=== PATIENT | male | born 2005 | race Two or more races ===

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

== ENCOUNTER 2024-06-09 08:46 | Emergency (ER) | payer OTHER, SELFPAY ==
--- NOTE | ~2024-06-09 | XR_ITS ---
EXAMINATION: XR CHEST CLINICAL INFORMATION: Left-sided chest pain this morning COMPARISON: None available. TECHNIQUE: 2 views of the chest were obtained. FINDINGS: No pneumothorax. Lungs are well-expanded and clear. No pleural effusion. Heart and pulmonary vessels are normal. XR/XR chest 2V IMPRESSION: No active disease. No pneumothorax. Electronically signed by: Imtiaz Henry MD 06/09/2024 10:59 AM EDT
--- NOTE | 2024-06-09 08:50 | ECG_ITS ---
Test Reason : CHEST PAIN Blood Pressure : / mmHG Vent. Rate : 062 BPM Atrial Rate : 000 BPM P-R Int : 000 ms QRS Dur : 086 ms QT Int : 372 ms P-R-T Axes : 000 079 042 degrees QTc Int : 377 ms Normal sinus rhythm Normal ECG When compared with ECG of 01-OCT-2022 09:03, No significant change was found Referred By: Generic ED Physician Electronically Signed By:GAMAL HECK
[2024-06-09 09:07] VITALS: BP 112/51; PULSE 59; RESP 16; TEMP 36.4; O2SAT 99; BMI 16.9
[2024-06-09 09:29] LABS: MANUAL DIFF FLAG NO
[2024-06-09 09:31] LABS: Basophils Percent Auto 0.5 % (0-2); Eosinophils Percent Auto 0.5 % (0-4); Hematocrit 39.5 % (42.0-52.0); Hemoglobin 13.6 g/dl (14.0-18.0); Imm Gran Abs Auto 0.02 X10*3/uL (0.00-0.03); Imm Gran Pct Auto 0.3 % (0.0-0.4); Lymphocytes Absolute Auto 1.2 X10*3/uL (1.2-4.9); Lymphocytes Percent Auto 18.6 % (20-40); Mean Corpuscular HGB Conc 34.4 g/dl (31.0-36.0); Mean Corpuscular Hemoglobin 31.1 pg (27.0-33.0); Mean Corpuscular Volume 90.2 fL (80.0-98.0); Mean Platelet Volume 10.3 fL (9.4-12.4); Monocytes Absolute Auto 0.5 X10*3/uL (0.1-1.2); Monocytes Percent Auto 7.5 % (2-11); Neutrophils Absolute Auto 4.6 x10*3/uL (2.0-8.3); Neutrophils Percent Auto 72.6 % (45-73); Platelet Count 221 X10*3/uL (160-400); Red Blood Count 4.38 X10*6/uL (4.60-5.80); Red Cell Distribution Width 13.2 % (11.0-16.0); White Blood Count 6.3 X10*3/uL (4.8-10.8)
[2024-06-09 09:47] LABS: Alanine Aminotransferase 18 U/L (0-40); Albumin Level 4.5 g/dL (3.5-5.0); Alkaline Phosphatase 96 U/L (39-117); Anion Gap 12 (12-20); Aspartate Amino Transferase 25 U/L (5-37); Bilirubin Total 0.8 mg/dL (0.0-1.0); Blood Urea Nitrogen 12 mg/dL (9-16); Calcium 9.5 mg/dL (8.4-10.2); Carbon Dioxide 26 mmol/L (22-29); Chloride 105 mmol/L (96-108); Creatinine Clr Calc Pharmacy 103.6; Estimated Glomerular Filt Rate > 60; Glucose Random 85 mg/dL (60-115); Magnesium 2.2 mg/dL (1.6-2.6); Potassium 4.4 mmol/L (3.3-5.1); Sodium 139 mmol/L (135-145)
[2024-06-09 10:00] VITALS: BP 97/59; PULSE 57; RESP 14; TEMP 36.5; O2SAT 100
[2024-06-09 10:05] LABS: Troponin-I High Sensitivity < 2.7 ng/L (<3.5-35.0)
[2024-06-09 12:00] VITALS: BP 97/57; PULSE 57; RESP 14; TEMP 36.5; O2SAT 100
--- NOTE | 2024-06-09 13:02 | ECG_ITS ---
Test Reason : ABNORMAL EKG Blood Pressure : / mmHG Vent. Rate : 050 BPM Atrial Rate : 050 BPM P-R Int : 126 ms QRS Dur : 096 ms QT Int : 386 ms P-R-T Axes : 024 078 046 degrees QTc Int : 351 ms Sinus bradycardia Otherwise normal ECG When compared with ECG of 09-JUN-2024 08:47, No significant change was found Referred By: Reza Phillips Electronically Signed By:GAMAL HECK
[2024-06-09 13:18] LABS: Influenza A PCR NEGATIVE (Negative); Influenza B PCR NEGATIVE (Negative); Resp Syncy Virus RNA Qual PCR NEGATIVE (Negative); SARS COV2 PCR INHOUSE NEGATIVE (Negative)
--- NOTE | 2024-06-09 13:29 | ED_ITS ---
HPI - Chest Pain General Chief Complaint: Chest Pain Stated Complaint: Chest pain Time Seen by Provider: 06/09/24 12:58 Source: patient Mode of arrival: ambulatory Limitations: language barrier ([employer] Press Supervisor used) History of Present Illness ED Provider: Jacqueline YANG narrative: 18-year-old male with no significant past medical history presenting for chest pain. Patient states that his pain started this morning around 08:00 o'clock while he was at work. He describes it as a left lower dull pain. He denies shortness of breath and diaphoresis. He has been experiencing this pain for approximately 3 years. 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 He never followed up for this. His pain will occur once every few weeks to months and is not associated with activity. Related Data Previous Rx's ?Medication ?Instructions ?Recorded ibuprofen 600 mg tablet 600 mg PO Q6H PRN pain #30 tabs 04/05/22 doxycycline monohydrate 100 mg 100 mg PO BID #20 caps 04/10/22 capsule ibuprofen 600 mg tablet 600 mg PO Q8H PRN pain #30 tabs 04/10/22 ondansetron 4 mg disintegrating 4 mg PO Q8H PRN nausea and 10/01/22 tablet vomiting #10 tabs Allergies Allergy/AdvReac Type Severity Reaction Status Date / Time Penicillins Allergy Facial Verified 06/09/24 09:09 Swelling Review of Systems 2 Review of Systems: Patient endorses chest pain Patient denies head pain, neck pain, shortness of breath, abdominal pain, nausea, vomiting, diaphoresis, fevers, chills, trauma PMFSH Social History Social History Advance Directives: No Advance Directives Information Provided: No Do you have a plan to hurt others: No Plan Current occupational status: employed Current occupation: left-handed Physical Exam 2 Vital Signs: Vital Signs: Last Vital Signs Temp 97.7 F 06/09/24 12:00 Pulse 57 06/09/24 12:00 Resp 14 06/09/24 12:00 BP 97/57 L 06/09/24 12:00 Pulse Ox 100 06/09/24 12:00 O2 Del Method Room Air 06/09/24 12:00 BMI result Body Mass Index 16.9 Well-appearing male Lungs clear to auscultation bilaterally; normal S1-S2 regular rate and rhythm; no chest wall tenderness to palpation Abdomen is soft nontender nondistended Bedside echo showing aortic root < 3cm and LV wall thickness of less than 12mm Medications Administered Discontinued Medications Generic Name Dose Route Start Last Admin Trade Name Kurt PRN Reason Stop Dose Admin Acetaminophen 650 mg 06/09/24 13:28 06/09/24 13:55 Acetaminophen 325 Mg Tablet PO 06/09/24 13:29 650 mg ONCE ONE Administration Ketorolac Tromethamine 15 mg 06/09/24 13:27 06/09/24 13:55 Ketorolac Tromethamine 15 Mg/Ml Vial IM 06/09/24 13:28 15 mg ONCE ONE Administration Medical Decision Making Medical Decision Making [facility] Narrative: 18-year-old male presenting with chest pain that has been ongoing for 3 years. I am unclear as to the etiology of this chest pain. Differentials include musculoskeletal pain/costochondritis, acid reflux, atypical chest pain however I am not concerned for HOCM, ACS given reassuring bedside ultrasound, EKG and labs H&H stable, electrolytes are within normal limits, negative troponin x2 Feel comfortable discharging the patient with follow up instructions. I told him to schedule an appointment with his PCP and gave him referral for Cardiology Differential Diagnosis Differential Diagnoses: The differential diagnosis associated with the presentation includes Atypical chest pain, acid reflux, musculoskeletal pain/costochondritis Lab Data 06/09/24 09:25 06/09/24 09:25 Labs: Lab Results 06/09/24 06/09/24 06/09/24 Range/Units 09:25 12:36 13:28 WBC 6.3 (4.8-10.8) X10*3/uL RBC 4.38 L (4.60-5.80) X10*6/uL Hgb 13.6 L (14.0-18.0) g/dl Hct 39.5 L (42.0-52.0) % MCV 90.2 (80.0-98.0) fL MCH 31.1 (27.0-33.0) pg MCHC 34.4 (31.0-36.0) g/dl RDW 13.2 (11.0-16.0) % Plt Count 221 (160-400) X10*3/uL MPV 10.3 (9.4-12.4) fL Immature Gran % (Auto) 0.3 (0.0-0.4) % Neut % (Auto) 72.6 (45-73) % Lymph % (Auto) 18.6 L (20-40) % [place] % (Auto) 7.5 (2-11) % Eos % (Auto) 0.5 (0-4) % Baso % (Auto) 0.5 (0-2) % Lymph # (Auto) 1.2 (1.2-4.9) X10*3/uL [place] # (Auto) 0.5 (0.1-1.2) X10*3/uL Eos # (Auto) 0.0 (0.0-0.4) X10*3/uL Baso # (Auto) 0.0 (0.0-0.2) X10*3/uL Abs Immat Gran (auto) 0.02 (0.00-0.03) X10*3/uL Absolute Neuts (auto) 4.6 (2.0-8.3) x10*3/uL Absolute Nucleated RBC 0.000 (0.0-0.012) X10*3/uL Nucleated RBC % (auto) 0.0 (0.0-0.2) /100WBC Sodium 139 (135-145) mmol/L Potassium 4.4 (3.3-5.1) mmol/L Chloride 105 (96-108) mmol/L Carbon Dioxide 26 (22-29) mmol/L Anion Gap 12 (12-20) BUN 12 (9-16) mg/dL Creatinine 0.86 (0.5-1.4) mg/dL Estim Creat Clear Calc 103.6 Estimated GFR > 60 Random Glucose 85 (60-115) mg/dL Calcium 9.5 D (8.4-10.2) mg/dL Magnesium 2.2 (1.6-2.6) mg/dL Total Bilirubin 0.8 (0.0-1.0) mg/dL AST 25 (5-37) U/L ALT 18 (0-40) U/L Alkaline Phosphatase 96 (39-117) U/L Troponin I High Sens < 2.7 < 2.7 (<3.5-35.0) ng/L Total Protein 7.0 (6.5-8.0) g/dL Albumin 4.5 (3.5-5.0) g/dL Influenza Type A (PCR) NEGATIVE (Negative) Influenza Type B (PCR) NEGATIVE (Negative) RSV RNA Qual (PCR) NEGATIVE (Negative) SARS-CoV-2 RNA (RT-PCR) NEGATIVE (Negative) Discharge Plan Discharge Clinical Impression: Atypical chest pain Patient Disposition: Home, Self-Care Additional Instructions: Call to establish and follow up with a primary care provider. If you already have a primary care provider, please follow up with them. Llame para establecer y hacer un seguimiento con un proveedor de atenci?n primaria. Si ya tiene un proveedor de atenci?n primaria, naida un seguimiento con ?l. Programe debra shamar con el cardi?logo que figura en rojo documentaci?n de neeru. Prescriptions: No Action ibuprofen 600 mg tablet 600 mg PO Q6H PRN (Reason: pain) Qty: 30 0RF ondansetron 4 mg tablet,disintegrating 4 mg PO Q8H PRN (Reason: nausea and vomiting) Qty: 10 0RF doxycycline monohydrate 100 mg capsule 100 mg PO BID Qty: 20 0RF ibuprofen 600 mg tablet 600 mg PO Q8H PRN (Reason: pain) Qty: 30 0RF Referrals: Jean hCavez MD [Physician] - Print Language: Bangladeshi
[2024-06-09] MEDS: Ketorolac Tromethamine 15 MG/ML VIAL IM (13:55)
[2024-06-09] MEDS: Acetaminophen 325 MG TABLET 650 MG PO (13:55)
[2024-06-09 14:04] LABS: Troponin-I High Sensitivity < 2.7 ng/L (<3.5-35.0)
[2024-06-09 14:40] VITALS: BP 109/53; PULSE 58; RESP 14; TEMP 36.6; O2SAT 100
== END 2024-06-09 14:41 | disposition home or self-care (01) ==
PROVIDERS: Physician Assistant Medical; Emergency Provider Student in an Organized Health Care Education/Training Program
DX: R07.89 Other chest pain (principal); Z03.818 Encounter for observation for suspected exposure to other biological agents ruled out
CPT/HCPCS: 0241U; 36415; 71046; 80053; 83735; 84484; 85025; 93005; 96372; 99284; 99285; J1885

== ENCOUNTER 2025-01-17 15:22 | Emergency (ER) | payer OTHER, SELFPAY ==
--- NOTE | ~2025-01-17 | XR_ITS ---
CLINICAL HISTORY: L anterior CP 2 view chest x-ray. Comparison: CR/SR - XR CHEST 2V - 06/09/24 09:17 EDT Findings: The lungs are adequately expanded. No focal consolidation. No effusion or pneumothorax. Cardiac and mediastinal contours are within normal limits. No acute osseous abnormality Impression: No acute process. This document has been electronically signed by: Oniel Zuluaga MD on 01/17/2025 16:05:21
--- NOTE | 2025-01-17 15:25 | ECG_ITS ---
Test Reason : chest pain Blood Pressure : */* mmHG Vent. Rate : 66 BPM Atrial Rate : 66 BPM P-R Int : 146 ms QRS Dur : 92 ms QT Int : 356 ms P-R-T Axes : 66 80 57 degrees QTcB Int : 373 ms Normal sinus rhythm Normal ECG When compared with ECG of 09-Jun-2024 13:06, No significant change was found Referred By: Generic ED Physician Electronically Signed By: NIURKA CADENA
--- NOTE | 2025-01-17 15:35 | ED_ITS ---
HPI - Chest Pain General Chief Complaint: Chest Pain Stated Complaint: Chest pain Time Seen by Provider: 01/17/25 17:34 Source: patient and old records reviewed Mode of arrival: ambulatory Limitations: no limitations History of Present Illness ED Provider: SOLA YANG narrative: 19 yo male with no sig PMH here with c/o L chest pain while lifting at work he notes it started at 1pm. He did not eat today due to he has a picky diet. In childhood mom states he had this issue. They do have a glucometer at home. He denies travel, URI, pleuritic chest pain, fevers. He states he feels fine now. It was not pleuritic MD complaint: chest pain Onset (ago): day(s) (1pm today) Timing of current episode: now resolved Prior episodes: Yes Onset: during exertion (lifting and using arms) Pain location: left chest Pain radiation: none Severity: moderate Quality: aching Relieving factors: nothing Exacerbating factors: palpation and movement Treatment prior to arrival: none Related Data Previous Rx's ?Medication ?Instructions ?Recorded ibuprofen 600 mg tablet 600 mg PO Q6H PRN pain #30 tabs 04/05/22 doxycycline monohydrate 100 mg 100 mg PO BID #20 caps 04/10/22 capsule ibuprofen 600 mg tablet 600 mg PO Q8H PRN pain #30 tabs 04/10/22 ondansetron 4 mg disintegrating 4 mg PO Q8H PRN nausea and 10/01/22 tablet vomiting #10 tabs Allergies Allergy/AdvReac Type Severity Reaction Status Date / Time Penicillins Allergy Facial Verified 01/17/25 15:39 Swelling Review of Systems 2 Review of Systems: Constitutional : No Weight loss, No Fever, No Chills ENT/Mouth : No sore throat, No Rhinorrhea Eyes: No Eye Pain, No Swelling Cardiovascular : pos Chest Pain, no SOB, no Dyspnea on Exertion, No Orthopnea, No Edema, No Palpitations Respiratory : No Cough, No Sputum Gastrointestinal : no Nausea, No Vomiting, No Diarrhea, No abdominal Pain, No Hematochezia, No Melena Genitourinary : No Dysuria, No Urinary Frequency Musculoskeletal : No joint pain, No Myalgias, No Joint Swelling Skin : No Skin Lesions, No rash Neuro : No Weakness, No Numbness, No Dizziness, No Headache All other systems reviewed and are negative PMFSH Past Medical History Attestation statement: The following information was validated with the patient. Source: old records reviewed Medical History Finger laceration Social History Social History (Updated 01/17/25 @ 17:59 by Hermelinda Guillen DO) Patient Tobacco Use Status: Never used Tobacco Advance Directives: No Advance Directives Information Provided: No Do you have a plan to hurt others: No Plan Current occupational status: employed Current occupation: left-handed Physical Exam 2 Vital Signs: Vital Signs: Last Vital Signs Temp 98.2 F 01/17/25 15:36 Pulse 67 01/17/25 15:36 Resp 18 01/17/25 15:36 BP 111/57 L 01/17/25 15:36 Pulse Ox 100 01/17/25 15:36 O2 Del Method Room Air 01/17/25 15:36 BMI result Body Mass Index 17.2 Appearance: Alert. Oriented X3. No acute distress. Eyes: Pupils equal, round and reactive to light. ENT: Pharynx normal. Neck: Normal inspection. Neck supple. CVS: Normal heart rate and rhythm. Pulses normal. chest: ttp along L pectoralis Respiratory: No respiratory distress. Breath sounds normal. Abdomen: Soft and nontender. Skin: Skin warm and dry. Normal skin color. Normal skin turgor. Extremities: No lower extremity edema. Neuro: Oriented X 3. No motor deficit. No sensory deficit. CN2-12 intact Course Course Course Narrative: This is an RME performed by Mil Franklin TIME CYCLE OPERATOR: Additional HPI, ROS, PE not included below will be deferred to primary provider. Patient is a 19-year-old male who presents emergency department for evaluation of left-sided chest pain with onset today. Reports he has had similar symptoms in the past but this episode started today. Difficulty describing it is quality. Denies recent ill like symptoms or upper respiratory symptoms. Plan: EKG, serum labs, CXR Medical Decision Making Medical Decision Making MDM Narrative: 19 yo male with no sig PMH here with c/o chest wall pain after lifting - no recent URI, not pleuritic, no ACS risk factors - at this time seems MSK, PERC Negative, pain gone doubt dissection - at this time will obtain EKG, troponin, CXR BS low but up after eating hx of same in past did not eat today Differential Diagnosis Differential Diagnoses: The differential diagnosis associated with the presentation includes chest wall pain, atypical chest pain, hypoglycemia Admission/Observation Consideration of admission/observation: Escalation of care including admission/observation considered work up negative mom has glucometer and aware of low BS it is better now he is going to go home and eat. Lab Data MDM Lab Attestation statement: I reviewed the patient's lab results. 01/17/25 15:59 01/17/25 15:59 Labs: Lab Results 01/17/25 01/17/25 Range/Units 15:59 17:50 WBC 6.0 (4.8-10.8) X10*3/uL RBC 4.49 L (4.60-5.80) X10*6/uL Hgb 13.8 L (14.0-18.0) g/dl Hct 39.7 L (42.0-52.0) % MCV 88.4 (80.0-98.0) fL MCH 30.7 (27.0-33.0) pg MCHC 34.8 (31.0-36.0) g/dl RDW 12.4 (11.0-16.0) % Plt Count 212 (160-400) X10*3/uL MPV 10.9 (9.4-12.4) fL Immature Gran % (Auto) 0.2 (0.0-0.4) % Neut % (Auto) 64.8 (45-73) % Lymph % (Auto) 24.3 (20-40) % [place] % (Auto) 9.2 (2-11) % Eos % (Auto) 1.0 (0-4) % Baso % (Auto) 0.5 (0-2) % Lymph # (Auto) 1.5 (1.2-4.9) X10*3/uL [place] # (Auto) 0.6 (0.1-1.2) X10*3/uL Eos # (Auto) 0.1 (0.0-0.4) X10*3/uL Baso # (Auto) 0.0 (0.0-0.2) X10*3/uL Abs Immat Gran (auto) 0.01 (0.00-0.03) X10*3/uL Absolute Neuts (auto) 3.9 (2.0-8.3) x10*3/uL Absolute Nucleated RBC 0.000 (0.0-0.012) X10*3/uL Nucleated RBC % (auto) 0.0 (0.0-0.2) /100WBC Sodium 141 (135-145) mmol/L Potassium 3.8 (3.3-5.1) mmol/L Chloride 106 (96-108) mmol/L Carbon Dioxide 25 (22-29) mmol/L Anion Gap 14 (12-20) BUN 11 (9-16) mg/dL Creatinine 0.92 (0.5-1.4) mg/dL Estim Creat Clear Calc 97.7 Estimated GFR > 60 POC Glucose 85 (60-115) mg/dL Random Glucose 58 L* (60-115) mg/dL Calcium 9.3 (8.4-10.2) mg/dL Total Bilirubin 0.5 (0.0-1.0) mg/dL AST 23 (5-37) U/L ALT 20 (0-40) U/L Troponin I High Sens < 2.7 (<3.5-35.0) ng/L Total Protein 6.8 (6.5-8.0) g/dL Albumin 4.2 (3.5-5.0) g/dL Influenza Type A (PCR) NEGATIVE (Negative) Influenza Type B (PCR) NEGATIVE (Negative) RSV RNA Qual (PCR) NEGATIVE (Negative) SARS-CoV-2 RNA (RT-PCR) NEGATIVE (Negative) Independent Interpretation I performed an independent interpretation of an: EKG and Plain X-Ray (normal ) Interpretation: Rate: 66 Rhythm: NSR [place]: normal Normal P waves. Normal DANY. Normal QRS complex. ST T wave : early repol, no TOMA qTC: 373 prior studies: no change from prior The study has been interpreted contemporaneously by me. . Radiology Impression Discussion of test interpretation with radiology: I have reviewed the radiologist's reading. External Record Review External record reviewed: Outpatient record Prescription Management I considered prescription management with: Other Discharge Plan Discharge Clinical Impression: Atypical chest pain, Hypoglycemia Patient Disposition: Home, Self-Care Instructions: Chest Pain (ED), Non-diabetic Hypoglycemia (ED) Additional Instructions: EKG and chest xray normal blood work other than low blood sugar was normal return for worsening symptoms or concerns let your doctor know about your low blood sugar eat in the morning check your blood sugar at home if feeling weak, dizzy, confused or any other concerns Prescriptions: No Action ibuprofen 600 mg tablet 600 mg PO Q6H PRN (Reason: pain) Qty: 30 0RF ondansetron 4 mg tablet,disintegrating 4 mg PO Q8H PRN (Reason: nausea and vomiting) Qty: 10 0RF doxycycline monohydrate 100 mg capsule 100 mg PO BID Qty: 20 0RF ibuprofen 600 mg tablet 600 mg PO Q8H PRN (Reason: pain) Qty: 30 0RF Stand Alone Forms: Work/School Release Print Language: Citizen [place]
[2025-01-17 15:36] VITALS: BP 111/57; PULSE 67; RESP 18; TEMP 36.8; O2SAT 100; BMI 17.2
[2025-01-17 16:16] LABS: MANUAL DIFF FLAG NO
[2025-01-17 16:19] LABS: Basophils Percent Auto 0.5 % (0-2); Eosinophils Absolute Auto 0.1 X10*3/uL (0.0-0.4); Hematocrit 39.7 % (42.0-52.0); Hemoglobin 13.8 g/dl (14.0-18.0); Imm Gran Abs Auto 0.01 X10*3/uL (0.00-0.03); Imm Gran Pct Auto 0.2 % (0.0-0.4); Lymphocytes Absolute Auto 1.5 X10*3/uL (1.2-4.9); Lymphocytes Percent Auto 24.3 % (20-40); Mean Corpuscular HGB Conc 34.8 g/dl (31.0-36.0); Mean Corpuscular Hemoglobin 30.7 pg (27.0-33.0); Mean Corpuscular Volume 88.4 fL (80.0-98.0); Mean Platelet Volume 10.9 fL (9.4-12.4); Monocytes Absolute Auto 0.6 X10*3/uL (0.1-1.2); Monocytes Percent Auto 9.2 % (2-11); Neutrophils Absolute Auto 3.9 x10*3/uL (2.0-8.3); Neutrophils Percent Auto 64.8 % (45-73); Platelet Count 212 X10*3/uL (160-400); Red Blood Count 4.49 X10*6/uL (4.60-5.80); Red Cell Distribution Width 12.4 % (11.0-16.0)
[2025-01-17 16:58] LABS: Alanine Aminotransferase 20 U/L (0-40); Albumin Level 4.2 g/dL (3.5-5.0); Anion Gap 14 (12-20); Aspartate Amino Transferase 23 U/L (5-37); Bilirubin Total 0.5 mg/dL (0.0-1.0); Blood Urea Nitrogen 11 mg/dL (9-16); Calcium 9.3 mg/dL (8.4-10.2); Carbon Dioxide 25 mmol/L (22-29); Chloride 106 mmol/L (96-108); Creatinine Clr Calc Pharmacy 97.7; Estimated Glomerular Filt Rate > 60; Glucose Random 58 mg/dL (60-115); Potassium 3.8 mmol/L (3.3-5.1); Sodium 141 mmol/L (135-145); Total Protein 6.8 g/dL (6.5-8.0)
[2025-01-17 17:00] LABS: Influenza A PCR NEGATIVE (Negative); Influenza B PCR NEGATIVE (Negative); Resp Syncy Virus RNA Qual PCR NEGATIVE (Negative); SARS COV2 PCR INHOUSE NEGATIVE (Negative)
[2025-01-17 17:01] LABS: Troponin-I High Sensitivity < 2.7 ng/L (<3.5-35.0)
--- NOTE | 2025-01-17 17:03 | PC.NURSE ---
Critical value of Glucose 58 taken from lab, charger operator helper Pinky made aware as patient is still in [place]. Patient to be placed in room by charger operator helper.
--- NOTE | 2025-01-17 17:05 | PC.NURSE ---
Call from lab for hypoglycemia, pulled into room 3, snacks given and eating at this time. Mother at bedside. Will recheck pro shop attendant
[2025-01-17 17:54] LABS: Glucose, Whole Blood 85 mg/dL (60-115)
[2025-01-17 18:26] LABS: Alkaline Phosphatase 89 U/L (39-117)
[2025-01-17 18:45] VITALS: BP 111/57; PULSE 67; RESP 18; TEMP 36.8; O2SAT 100
== END 2025-01-17 18:45 | disposition home or self-care (01) ==
PROVIDERS: Nurse Practitioner Family; Emergency Provider Emergency Medicine
DX: R07.9 Chest pain, unspecified (principal); E16.2 Hypoglycemia, unspecified; Z03.818 Encounter for observation for suspected exposure to other biological agents ruled out
CPT/HCPCS: 0241U; 71046; 80053; 82947; 84484; 85025; 93005; 99283

== ENCOUNTER → 2025-01-17 15:25 | Outpatient (BNV) | payer OTHER, SELFPAY | PROVIDERS: Emergency Provider Emergency Medicine; Visit Provider Internal Medicine | DX: R07.9 Chest pain, unspecified (principal) | CPT/HCPCS: 93010 ==

== ENCOUNTER → 2025-01-17 15:42 | Outpatient (BNV) | payer OTHER, SELFPAY | PROVIDERS: Visit Provider Radiology Vascular & Interventional Radiology | DX: R07.9 Chest pain, unspecified (principal) | CPT/HCPCS: 71046 ==